=== PATIENT | female | born 1980 | race Two or more races ===

== ENCOUNTER → 2017-12-01 | Emergency (ER) | payer OTHER ==
[~2017-12-01] VITALS: Ht 160 cm; Wt 78.0 kg
[~2017-12-01] MED LIST: IBUPROFEN600 MG ORAL; ROBAXIN500 MG PO
[2017-12-01 18:27] VITALS: BP 161/102
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
== END | disposition home or self-care (01) ==
LOC: EMR 19:05
DX: S16.1XXA Strain of muscle, fascia and tendon at neck level, initial encounter (principal); V43.52XA Car driver injured in collision with other type car in traffic accident, initial encounter; Y92.411 Interstate highway as the place of occurrence of the external cause; M62.830 Muscle spasm of back; M62.838 Other muscle spasm
CPT/HCPCS: 99282